=== PATIENT | male | born 1980 | race Caucasian/White ===

== ENCOUNTER 2022-01-15 16:56 | Emergency (ER) | payer OTHER ==
[2022-01-15] MEDS ORDERED: Xylocaine 2%-Epi 1:100,000 MDV IJ ONE (17:04)
[2022-01-15 17:10] VITALS: BP 157/86; O2SAT 96
--- NOTE | 2022-01-15 17:24 | ERPHSYRPT ---
- History of Present Illness Time Seen by Provider: 01/15/22 17:05 Source: patient Exam Limitations: no limitations Patient Subjective Stated Complaint: rectal abscess Triage Nursing Assessment: Pt abulatory back to room, alert and oriented X 4, re ctal pain 9/10, pt states this is the seventh abscess he has had, lungs clear, abscess noted to rectum, some redness noted, very tender to the touch. Physician History: Patient is a 41-year-old male who presents with a complaint of a recurrent rectal abscess. He has had a total of 7 rectal abscesses some require draining some drain spontaneously. This wound has been present for several days and is extremely tender. Timing/Duration: day(s) (2) Quality: painful Severity: severe Location: perirectal Allergies/Adverse Reactions: azithromycin [From Zithromax] Allergy (Verified 01/15/22 17:11) lisinopril Allergy (Verified 01/15/22 17:11) tramadol [From Ultram] Allergy (Verified 01/15/22 17:11) Hx Tetanus, Diphtheria Vaccination/Date Given: Yes Hx Influenza Vaccination/Date Given: No Hx Pneumococcal Vaccination/Date Given: No Immunizations Up to Date: Yes Travel Risk - International Travel Have you traveled outside of the country in past 3 weeks: No - Coronavirus Screening Are you exhibiting any of the following symptoms?: No Close contact with a COVID-19 positive Pt in past 14-21 Days: No - Vaccine Status Have you recieved a Covid-19 vaccination: Yes [employer]: [employer] - Vaccination Dates Date of 2cond Vaccination (if applicable): none - Review of Systems Constitutional: No Fever, No Chills Eyes: No Symptoms Ears, Nose, & Throat: No Symptoms Respiratory: No Cough, No Dyspnea Cardiac: No Chest Pain, No Edema, No Syncope Abdominal/Gastrointestinal: No Abdominal Pain, No Nausea, No Vomiting, No Diarrhea Genitourinary Symptoms: No Dysuria Musculoskeletal: No Back Pain, No Neck Pain Skin: Induration, No Rash Neurological: No Dizziness, No Focal Weakness, No Sensory Changes Psychological: No Symptoms Endocrine: No Symptoms All Other Systems: Reviewed and Negative - Past Medical History Pertinent Past Medical History: Yes Neurological History: No Pertinent History ENT History: No Pertinent History Cardiac History: No Pertinent History Respiratory History: No Pertinent History Endocrine Medical History: No Pertinent History Musculoskeletal History: No Pertinent History GI Medical History: No Pertinent History, Esophageal Disorder Psycho-Social History: No Pertinent History Male Reproductive Disorders: No Pertinent History Other Medical History: rectal abscesses - Past Surgical History Past Surgical History: Yes Neuro Surgical History: No Pertinent History Cardiac: No Pertinent History Respiratory: No Pertinent History Gastrointestinal: Cholecystectomy Genitourinary: No Pertinent History Musculoskeletal: Orthopedic Surgery Male Surgical History: No Pertinent History Other Surgical History: I and D rectal abscess - Social History Smoking Status: Current every day smoker How long have you smoked: 20 years Exposure to second hand smoke: No Drug Use: none Patient Lives Alone: No - Nursing Vital Signs Nursing Vital Signs: Initial Vital Signs Temperature 99 F 01/15/22 16:59 Pulse Rate 107 H 01/15/22 16:59 Respiratory Rate 20 01/15/22 16:59 Blood Pressure 157/86 01/15/22 16:59 O2 Sat by Pulse Oximetry 96 01/15/22 16:59 Pain Scale Pain Intensity 9 - Physical Exam General Appearance: moderate distress, alert Eye Exam: PERRL/EOMI, eyes nml inspection Ears, Nose, Throat Exam: normal ENT inspection, pharynx normal, moist mucous membranes Neck Exam: normal inspection, non-tender, supple, full range of motion Respiratory Exam: normal breath sounds, lungs clear, No respiratory distress Cardiovascular Exam: regular rate/rhythm, normal heart sounds Gastrointestinal/Abdomen Exam: soft, mass, No tenderness Rectal Exam: other (Perirectal abscess) Back Exam: normal inspection, normal range of motion, No CVA tenderness, No vertebral tenderness Extremity Exam: normal inspection, normal range of motion Neurologic Exam: alert, oriented x 3, cooperative, normal mood/affect, sensation nml, No motor deficits Skin Exam: normal color, warm, dry SpO2: 96 Procedures - Incision and Drainage Time of Procedure: 17:22 Timeout: Performed Site: Perirectal area Anesthesia: 1% lidocaine w/epi cc's of anesthesia: 3 Blade Size: 10 I & D Procedure: betadine prep, sterile drapes applied, culture obtained, irrigated with normal saline Results: large amount pus Progress: Patient refused to have the abscess cavity packed. - Course Nursing assessment & vital signs reviewed: Yes Ordered Tests: Medication Summary Discontinued Medications Generic Name Dose Route Start Last Admin Trade Name Freq PRN Reason Stop Dose Admin Lidocaine/Epinephrine Confirm 01/15/22 17:04 Lidocaine Hcl/Epinephrine 2% 20 Ml Mdv Administered 01/15/22 17:05 Dose 1 ml IJ .STK-MED ONE - Progress Progress: improved - Departure Departure Disposition: Home Clinical Impression: Perirectal abscess Condition: Stable Critical Care Time: No Referrals: DOCTOR,NO FAMILY [Primary Care Provider] - Follow up/PCP as directed Instructions: Wound Infection Additional Instructions: Patient was instructed to sitz bath's frequently to keep the abscess draining. Prescriptions: clindamycin HCL [Cleocin HCl] 300 mg PO TID 7 Days #21 cap
[2022-01-15 17:36] VITALS: PULSE 90
== END 2022-01-15 17:36 | disposition home or self-care (01) ==
LOC: ED 16:56
DX: K61.1 Rectal abscess (principal); Z72.0 Tobacco use
CPT/HCPCS: 46040; 87070; 99283